=== PATIENT | male | born 1940 | race Caucasian/White ===

== ENCOUNTER 2017-08-23 08:03 | Emergency (ER) | payer MEDICARE, OTHER ==
[2017-08-23 08:16] VITALS: BP 149/81
--- NOTE | 2017-08-23 08:42 | UC ---
Throat Pain/Nasal Jose Carlos HPI - HPI Summary HPI Summary: Patient presents with a past medical history of HTN. He presents today with complaints of a sore throat that he had last night, and states he took a throat lozenges and it went away. He denies fever,chills, chest pain, cough, sputum production, abdominal pain, nausea, vomiting, diarrhea, joint pain or rashes. He states he is eating and drinking will, with no recent travel, or ill contacts. He presents at the walk-in because his wanted him to get checked out. - History of Current Complaint Chief Complaint: UCRespiratory Stated Complaint: URI Time Seen by Provider: 08/23/17 08:13 Hx Obtained From: Patient Onset/Duration: Sudden Onset, Lasting Hours Severity: Mild Cough: Nonproductive Associated Signs & Symptoms: Positive: Negative - Epiglottits Risk Factors Epiglottis Risk Factors: Negative - Allergies/Home Medications Allergies/Adverse Reactions: Allergies Allergy/AdvReac Type Severity Reaction Status Date / Time No Known Allergies Allergy Verified 04/12/16 13:39 Home Medications: Home Medications Vikjkvhuqgbkb-Pvcthjsxegccn-Cw [Mucinex Sinus-Max Pressur 5-325-200 mg] [History] PMH/Surg Hx/FS Hx/Imm Hx Previously Healthy: Yes Cardiovascular History: Hypertension - Surgical History Surgical History: Yes Surgery Procedure, Year, and Place: Rt SHOULDER-RTC 1999; [facility] HIP REPLACEMENT- 2010 & 2006; [facility]-2003; Lt SHOUDER RTC-1991; [facility] ([place]); 1963 FX HIP- Lt - Family History Known Family History: Positive: Hypertension - Social History Occupation: Retired Lives: Alone Alcohol Use: None Substance Use Type: None Smoking Status (MU): Former Smoker Amount Used/How Often: CHEWED TOBACCO ABOUT 20 YEARS,QUIT AGE 61. Length of Time of Smoking/Using Tobacco: SMOKED ONLY ABOUT 6 MONTHS Have You Smoked in the Last Year: No Review of Systems Constitutional: Negative Skin: Negative Eyes: Negative ENT: Sore Throat Respiratory: Negative Cardiovascular: Negative Gastrointestinal: Negative Genitourinary: Negative Motor: Negative Neurovascular: Negative Musculoskeletal: Negative Neurological: Negative Psychological: Negative Is Patient Immunocompromised?: No All Other Systems Reviewed And Are Negative: Yes Physical Exam Triage Information Reviewed: Yes Appearance: Well-Appearing Vital Signs: Initial Vital Signs Temp 97.7 F 08/23/17 08:09 Pulse 60 01/14/18 08:09 Resp 16 08/23/17 08:09 BP 149/81 08/23/17 08:09 Pulse Ox 96 08/23/17 08:09 Vital Signs Reviewed: Yes Eye Exam: Normal ENT Exam: Normal Dental Exam: Normal Neck exam: Normal Neck: Positive: 1 Respiratory Exam: Normal Cardiovascular Exam: Normal Abdominal Exam: Normal Musculoskeletal Exam: Normal Neurological Exam: Normal Psychological Exam: Normal Skin Exam: Normal Throat Pain/Nasal Course/Dx - Course Course Of Treatment: Patient presents with a past medical history of HTN. He presents with complaints of sore throat. He has a nontoxic appearance with normal vital signs. Rapid strep was negative. A compromise was reached where I agreed to send a Penvk RX to the pharmacy and asked them not to fill it today, because he did not have any throat pain at the time of his visit. He agreed to wait and if his symtpoms worsen he will then go pick it up. At this time I do not feel he has a bacterial infection and would not benefit from taking antibioitcs. - Differential Dx/Diagnosis Provider Diagnoses: pharyngitis Discharge - Discharge Plan Condition: Stable Disposition: HOME Patient Education Materials: Pharyngitis (ED) Referrals: French CAIN,Leroy Bowling [Primary Care Provider] - Additional Instructions: Patient agrees to no antibiotic treatment at this time as he has not symptoms.
== END 2017-08-23 08:54 | disposition home or self-care (01) ==
LOC: UCEAST 08:03
DX: J02.9 Acute pharyngitis, unspecified (principal); I10 Essential (primary) hypertension; F17.221 Nicotine dependence, chewing tobacco, in remission
CPT/HCPCS: 87651; 99212; G0463

== ENCOUNTER 2018-11-02 08:41 | Day surgery (SDC) | payer MEDICARE, OTHER ==
--- NOTE | 2018-10-27 04:28 | HP ---
HISTORY AND PHYSICAL: DATE OF ADMISSION: 11/02/18 He is coming into [facility] on 11/02/18 for right carpal tunnel release. CHIEF COMPLAINT: Right wrist and hand pain and numbness. HISTORY OF PRESENT ILLNESS: He has had several years of severe right hand pain , awakening him several times at night with pain where he has to wake up, hang his hand off the bed, and shake it around some in order to fall asleep again. He has had no specific injury and the pain is mainly in the thumb, index, middle , and ring fingers. The plan is for a right carpal tunnel release with local anesthetic and anesthesia monitoring. PAST MEDICAL HISTORY: He has had hypertension. No history of DVT or phlebitis. No heart attack. No chest pain. Quit smoking 40 years ago. No drinking. 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 He has not taken medicine for the right hand pain. He is also starting diclofenac 50 mg each day. PAST SURGICAL HISTORY: He has had bilateral hip replacements, bilateral shoulder surgical care. MEDICATIONS: Daily meds include: 1. Atorvastatin 20 mg each day. 2. Amlodipine 10 mg each day. 3. Lasix 20 mg each day. 4. Nexium 40 mg each day. 5. Toprol 200 mg each day. 6. Vitamin B12 of 100 mg each day. 7. Fish oil. 8. Vitamin C. ALLERGIES: No allergies. FAMILY HISTORY: Positive for cancer. Negative for diabetes and cardiac. SOCIAL HISTORY: Lives with his spouse. 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 PHYSICAL EXAMINATION GENERAL: Alert, responsive, and cooperative. Cranial nerves are grossly intact. HEENT: Head is NC/AT. LUNGS: Clear bilaterally. HEART: Regular. S1 and S2 normal. No murmurs or gallops. ABDOMEN: Flat, soft, and nontender. EXTREMITIES: The right forearm has a radial pulse of 2+. The right hand has altered touch sensation in the middle finger and normal touch sensation on the ulnar side of the ring finger. There is a markedly positive Tinel's over the median nerve at the wrist and his hand has arthritic changes. The fist is somewhat incomplete. IMPRESSION: Right carpal tunnel syndrome. PLAN/RECOMMENDATIONS: Right carpal tunnel release. Local anesthetic with _ [facility] [place]. [id number]/[facility] #: [id number] DIPAK
[~2018-11-02 08:41] MED LIST: Buffered Lidocaine 1% SYRIN* 1 ML/SYRINGE INTRADERM ONE; Lactated Ringers 1000 ML Bag* 1,000 ML IV SCH; Midazolam* 1 MG/ML 2 ML VIAL (2 MG) ONE; Propofol* 10 MG/ML 20 ML BTL ONE; fentaNYL* 50 MCG/ML 2 ML VIAL (100 MCG VIAL) ONE
[2018-11-02] MEDS ORDERED: Buffered Lidocaine 1% SYRIN* 1 ML/SYRINGE INTRADERM ONE (09:32)
[2018-11-02] MEDS ORDERED: Lidocaine 1% INJ* 10 MG/ML 30 ML SDV ONE (10:25)
[2018-11-02] MEDS ORDERED: Bupivacaine 0.5%* 50 ML VIAL ONE (10:26)
[2018-11-02] MEDS ORDERED: Bupivacaine 0.25% SDV PF* 10 ML VIAL INJ ONE (10:35)
[2018-11-02] MEDS ORDERED: oxyCODONE/Acetamin 5/325 MG* TAB PO PRN (11:07)
[2018-11-02] MEDS ORDERED: Ondansetron INJ* 2 MG/ML VIAL IV PRN (11:07)
[2018-11-02] MEDS ORDERED: fentaNYL* 50 MCG/ML 2 ML VIAL (100 MCG VIAL) IV PRN (11:07)
[2018-11-02] MEDS ORDERED: Acetaminophen TAB* 325 MG PO PRN (11:07)
[2018-11-02] MEDS ORDERED: Ibuprofen TAB* 600 MG PO PRN (11:07)
[2018-11-02] MEDS ORDERED: Naloxone* 0.4 MG/ML 1 ML VIAL IV PRN (11:07)
[2018-11-02 11:47] VITALS: BP 137/80
--- NOTE | 2018-11-03 12:29 | OP ---
OPERATIVE REPORT: DATE OF OPERATION: 11/02/18 - SDS DATE OF : 38 SURGICAL CARE: Right wrist and hand. SURGEON: Dr. Smith. BAG SEALER: Farida Zapata, surgical services director. ANESTHESIOLOGIST: Dr. Butterfield. ANESTHESIA: MAC, Dr. Butterfield. Local anesthetic, Dr. Smith, 0.25% Marcaine without epinephrine. PRE-OP DIAGNOSIS: Right carpal tunnel syndrome. POST-OP DIAGNOSIS: Right carpal tunnel syndrome. OPERATIVE PROCEDURE: Exploration and decompression of the right median nerve of distal forearm, wrist, and hand. COMPLICATIONS: There were no complications. DRAINS: There were no drains. TOURNIQUET: Tourniquet control was utilized on the right forearm. CONDITION: Stable to recovery room. OPERATIVE INDICATION: Persistent severe pain, numbness, and tingling of right thumb, index, middle, and ring fingers with atrophy of the thenar eminence. The patient has had persistent awakening at night hand wringing to deal with the numbness of his right hand. DESCRIPTION OF PROCEDURE: The patient was brought to the operating room on the hospital stretcher. He was left on it. His legs were elevated. He was put in a comfortable position and the right upper extremity was wrapped with the tourniquet on the forearm and then sealed off. The right wrist and hand prepped and draped in usual manner for surgical care of the hand. We did our universal protocol time-out confirming Demond Rubio and plan right carpal tunnel surgery. We all agreed and we proceeded. The local anesthetic was given with 25-gauge needle into the ulnar aspect of the carpal tunnel and then in the skin and subcu of the surgical region and in the skin and subcu of the proximal volar distal forearm and then underneath the distal forearm fascia staying ulnar to the median nerve. The surgical care was 0.5 inch skin incision in an imaginary line extending the palmaris longus tendon into the palm. The skin and subcu divided. The palmar fascia was traversed and the carpal tunnel was entered through the volar flexor retinaculum. I then worked proximally in continuity with the distal deep fascia of the forearm. The fascia was cleaned on the superficial side. The fascia was cleaned on the deep side and the scissors were run up an inch and half proximal through the skin incision. I then worked distally dividing all the tight fibers, transverse over the median nerve and its branches going into the palm. The median nerve had a typical waist band-like constriction with some scarriness. The nerve was mobilized medially and laterally and the radial bursa was clear. Irrigation was done and the skin was then closed with interrupted 4-0 vertical mattress nylon sutures. Dressing with Betadine soaked release, sterile gauze, fluffs, 2- inch Zhanna, some 4-inch Webril, and a 4-inch Gorge bandage carefully secured. The patient was returned to the recovery area in stable and satisfactory condition. He had some IV sedation with Dr. Butterfield and the procedure was well tolerated. [id number]/[facility] #: [id number] MTDD
== END 2018-11-02 12:25 | disposition home or self-care (01) ==
LOC: OR 08:41
PROVIDERS: ATTEND Orthopaedic Surgery
DX: G56.01 Carpal tunnel syndrome, right upper limb (principal); I10 Essential (primary) hypertension; E78.5 Hyperlipidemia, unspecified; K21.9 Gastro-esophageal reflux disease without esophagitis
CPT/HCPCS: J2250; J2704; J3010; J3490

== ENCOUNTER 2020-10-05 05:33 | Inpatient (IN) ==
[2020-10-05] MEDS ORDERED: Buffered Lidocaine 1% SYRIN 1 ml INTRADERM ONE ×3 (06:00→06:07)
[2020-10-05] MEDS ORDERED: Lactated Ringers 1000 ml BAG 1,000 ML IV SCH ×3 (06:00→14:00)
[2020-10-05] MEDS ORDERED: Famotidine IV 10 MG/ML 2 ml VIAL (20 mg) IV ONE (06:00)
[2020-10-05] MEDS ORDERED: ceFAZolin 2 GM PREMIX 2 GM/50 ML BAG ONE ×2 (06:07→11:44)
[2020-10-05] MEDS ORDERED: Succinylcholine 200 mg VIAL 20 mg/ml 10 ml VIAL (200 mg) ONE (06:47)
[2020-10-05] MEDS ORDERED: fentaNYL 250 mcg/5 ml 50 MCG/ML 5 ml VIAL (250 MCG) ONE (06:47)
[2020-10-05] MEDS ORDERED: Midazolam 2 mg/2 ml VIAL 1 mg/ml 2 ml VIAL (2 mg) ONE (06:47)
[2020-10-05] MEDS ORDERED: Propofol 10 MG/ML 20 ML BTL ONE ×3 (06:47→10:34)
[2020-10-05] MEDS ORDERED: Phenylephrine IV 10 MG/ML 1 ml VIAL ONE (07:00)
[2020-10-05] MEDS ORDERED: Bupivacaine 0.25% SDV 30 ML ONE (07:00)
[2020-10-05] MEDS ORDERED: Bacitracin INJECTION 50,000 UNITS ONE (07:00)
[2020-10-05] MEDS ORDERED: Lidocaine 1% w EPI 1:200,000 SDV 30 ML VIAL ONE (07:00)
[2020-10-05] MEDS ORDERED: Rocuronium 50 mg VIAL 10 mg/ml 5 ml VIAL (50 mg) ONE (07:03)
[2020-10-05] MEDS ORDERED: Remifentanil 2 MG VIAL ONE ×3 (07:04→12:05)
[2020-10-05] MEDS ORDERED: Dexamethasone IV 4 MG/ML VIAL 1 ml VIAL ONE ×2 (08:48→09:20)
[2020-10-05] MEDS ORDERED: EPHEDrine (Pressors) 50 MG/ML VIAL ONE (09:02)
[2020-10-05] MEDS ORDERED: Gelfoam Sponge SIZE 100 SPONGE ONE (09:40)
[2020-10-05] MEDS ORDERED: Thrombin 5,000 UNITS 1 APPLIC KIT - topical use - TOPICAL ONE (09:40)
[2020-10-05] MEDS ORDERED: Ondansetron 4 mg VIAL 2 MG/ML 2 ml VIAL ONE (10:46)
[2020-10-05] MEDS ORDERED: Propofol 10 mg/ml 100 ML BTL 100 ML ONE (11:43)
[2020-10-05] MEDS ORDERED: HYDROcodone/ACETAMIN 5/325 mg TAB PO PRN ×2 (13:55)
[2020-10-05] MEDS ORDERED: Ondansetron 4 mg VIAL 2 MG/ML 2 ml VIAL IV PRN ×2 (13:55→14:04)
[2020-10-05] MEDS ORDERED: fentaNYL 100 mcg/2 ml 50 MCG/ML VIAL ONE ×2 (14:03→14:46)
[2020-10-05] MEDS ORDERED: oxyCODONE/Acetamin 5/325 mg TAB PO PRN (14:04)
[2020-10-05] MEDS ORDERED: Naloxone 0.4 mg VIAL 0.4 mg/ml 1 ml VIAL IV PRN (14:04)
[2020-10-05] MEDS ORDERED: DiMENhydriNATE IV 50 mg/ml 1 ml VIAL IV PUSH PRN (14:04)
[2020-10-05] MEDS: fentaNYL 100 mcg/2 ml 50 MCG/ML VIAL IV PRN ×4 (14:08→15:20)
[2020-10-05] MEDS ORDERED: oxyCODONE/Acetamin 5/325 mg TAB ONE (14:46)
[2020-10-05] MEDS: Magnesium Hydroxide LIQ 30 ML UDC PO SCH (20:24)
[2020-10-06] MEDS: Magnesium Hydroxide LIQ 30 ML UDC PO SCH ×2 (08:29→20:51)
[2020-10-06] MEDS ORDERED: VITAMIN C 1000 MG PO SCH (09:00)
[2020-10-07] MEDS: Magnesium Hydroxide LIQ 30 ML UDC PO SCH (09:10)
[2020-10-07 11:19] VITALS: BP 125/64
== END 2020-10-07 13:55 | disposition home or self-care (01) | DRG 473 ==
LOC: AA 05:33 → SSU 16:25
PROVIDERS: ADMIT Neurological Surgery; ATTEND Neurological Surgery